=== PATIENT | male | born 1995 | race Caucasian/White ===

== ENCOUNTER 2024-04-17 12:03 | Emergency (ER) | payer BC, SELFPAY ==
--- NOTE | 2024-04-17 12:08 | ECG_ITS ---
Test Date: 2024-04-17 12:08:16 Measurements Intervals [place] Rate: 119 P: 75 DC: 158 QRS: 82 QRSD: 94 T: 46 QT: 326 QTc: 460 Interpretive Statements SINUS TACHYCARDIA POSSIBLE RIGHT ATRIAL ENLARGEMENT POSSIBLE LEFT ATRIAL ENLARGEMENT BASELINE ARTIFACT- I, AVR ABNORMAL ECG No previous ECG available for comparison Electronically Signed On 04-17-2024 14:31:42 CDT by Unruly Andersen D.O.
[2024-04-17 12:11] VITALS: BP 127/86; PULSE 113; RESP 18; TEMP 37.5; O2SAT 100
[2024-04-17 12:21] LABS: Basophils Percent Auto 0.4 % (0.2-1.2); Eosinophils Absolute Auto 0.1 K/mm3 (0-0.3); Eosinophils Percent Auto 0.8 % (0-4.4); Hematocrit 37.3 % (42.0-52.0); Hemoglobin 12.7 g/dL (14.0-18.0); Immature Granulocyte Percent A 1.1 % (0-0.5); Lymphocytes Percent Auto 26.2 % (18.3-44.2); Mean Corpuscular Volume 88.2 fl (80-100); Mean Platelet Volume 9.2 fl (7.4-10.4); Monocytes Absolute Auto 0.7 K/mm3 (0.1-0.6); Monocytes Percent Auto 7.5 % (2.6-8.5); Neutrophils Absolute Auto 5.9 K/mm3 (1.3-6.7); Platelet Count Result 360 k/mm3 (150-375); Red Blood Count 4.23 M/mm3 (4.6-6.20); White Blood Count 9.2 K/mm3 (4.5-10.0)
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
[2024-04-17 12:38] LABS: Add Urine Microscopic? NO; Appearance Urine Clear (Clear); Bilirubin Urine Negative (Negative); Blood Urine Negative (Negative); Color Urine Yellow (Yellow); Glucose Urine UA Negative (Negative); Ketones Urine Negative (Negative); Leukocyte Esterase Ur Negative LEU/UL (Negative); Nitrate Urine Negative (Negative); Protein Urine Negative (Negative); Specific Grav Ur 1.008 (1.001-1.035); Urobilinogen Urine 0.2 mg/dL (<2.0)
[2024-04-17 12:39] LABS: Ethanol 46 mg/dL (<10)
[2024-04-17 12:40] LABS: Alanine Aminotransferase 20 U/L (6-50); Albumin Level 3.9 g/dL (3.5-5.1); Alkaline Phosphatase 99 U/L (38-126); Anion Gap 10 mmol/L (4-12); Aspartate Amino Transferase 30 U/L (17-59); Bilirubin,Total 0.9 mg/dL (0.2-1.3); Blood Urea Nitrogen 4 mg/dL (9-20); Calcium 8.9 mg/dL (8.4-10.2); Carbon Dioxide 25 mmol/L (22-30); Chloride 106 mmol/L (98-107); Estimated Glomerular Filt Rate > 60; Glucose 99 mg/dL (65-110); Potassium 3.7 mmol/L (3.4-5.0); Sodium 141 mmol/L (137-145)
[2024-04-17 12:52] LABS: Amphetamine Screen Urine Negative (Negative); Barbiturate Screen Urine Negative (Negative); Benzodiazepines Screen Urine Negative (Negative); Cannabinoid Screen Urine Positive (Negative); Cocaine Screen Urine Negative (Negative); Methadone Screen Urine Negative (Negative); Opiate Screen Urine Negative (Negative); Phencyclidine Screen Urine Negative (Negative)
[2024-04-17 13:00] LABS: Influenza A QL RT-PCR Negative (Negative); Influenza B QL RT-PCR Negative (Negative); RSV RNA, RT-PCR Negative (Negative); SARS-CoV-2 RNA PCR Negative (Negative)
--- NOTE | 2024-04-17 13:36 | PC.NURSE ---
Pt refusing IV. MD Xavier notified. Pt to receive fluids via oral intake instead d/t IV refusal.
--- NOTE | 2024-04-17 13:38 | PC.NURSE ---
This RN and Lisa RN spoke with pt Mom in family room. Mom is guardian and able to provide paperwork. Mom brought copy of pt suicide note. Copy made for chart and given to MD Xavier. Mom also reports fear of pt returning home d/t increased paranoia. In the past week, pt has been carrying around knives. Mom reports knives have been removed from household.
--- NOTE | 2024-04-17 13:48 | PC.NURSE ---
Addendum entered by Emely Monzon RN 04/17/24 18:03: No case number given. Original Note: Poison control called by this RN. Poison control educated to add on acetaminophen and salicylate levels and to treat GI symptoms if they arise. MD Xavier notified.
[2024-04-17 14:09] LABS: Acetaminophen < 10 ug/mL (10-30); Salicylate < 1.0 mg/dL (2-20)
--- NOTE | 2024-04-17 14:43 | PC.NURSE ---
Diet tray ordered
[2024-04-17] MEDS: LORazepam (*CRX) 1 MG TABLET PO (14:46)
--- NOTE | 2024-04-17 14:55 | PC.NURSE ---
Crisis called by this RN and spoke with sales representative printing supplies - Veronica. A crisis sales representative printing supplies should arrive at [facility] between 1600 and 1630.
[2024-04-17 15:00] VITALS: BP 128/73; PULSE 106; RESP 16; O2SAT 98
--- NOTE | 2024-04-17 15:17 | PC.NURSE ---
RN informed guardian Crisis will be arriving to evaluate pt in 1-2 hours. Guardian leaving for lunch phone number received. Lillian [phone]
--- NOTE | 2024-04-17 16:20 | PC.NURSE ---
Crisis arrived to assess pt. Currently speaking with guardian
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
--- NOTE | 2024-04-17 17:10 | PC.NURSE ---
Pt agitated, repeatedly pacing hallway. Pt asked to return to room. Pt not compliant with instruction. Pt yelling profanities in room. Not re-directable. Pt called this RN a little bitch, and said I can smell your cunt from here. Security at bedside. OTILIO and MD Xavier aware of pt behavior.
[2024-04-17] MEDS: LORazepam INJ (*CRX) 2 MG/ML VIAL IM (17:12)
[2024-04-17] MEDS: HALOPERIDOL LACTATE 5 MG/ML VIAL IM (17:12)
--- NOTE | 2024-04-17 18:55 | PC.NURSE ---
DANETTE Gonzalez attempted additional set of VS. Pt uncooperative.
--- NOTE | 2024-04-17 20:45 | PC.NURSE ---
Report given to [facility]. All questions answered. EMS to transfer pt to [facility].
== END 2024-04-17 20:45 ==
PROVIDERS: Emergency Provider Emergency Medicine
DX: F20.9 Schizophrenia, unspecified (principal); T39.312A Poisoning by propionic acid derivatives, intentional self-harm, initial encounter; Z11.52 Encounter for screening for COVID-19; R94.31 Abnormal electrocardiogram [ECG] [EKG]; R00.0 Tachycardia, unspecified
CPT/HCPCS: 36415; 80053; 80307; 81003; 84443; 85025; 87637; 93005; 96372; 99285; A9270; J1630; J2060

== ENCOUNTER 2024-05-03 22:43 | Emergency (ER) | payer BC, SELFPAY ==
[2024-05-03 22:57] VITALS: BP 136/87; PULSE 100; RESP 20; TEMP 36.7; O2SAT 97
--- NOTE | 2024-05-04 00:05 | PC.NURSE ---
@2250, This RN asked ED Charge if pt could be placed in only empty room #13. ED Charge stated if pt was not being a danger to himself or others, he could sit in the waiting room. Pt stated he had no SI or HI and was placed in waiting room. around @2355 pt walked out of ED doors. Pt came in at 0005, frantically stating that she has been sitting in the car since the pt arrived with EMS and that he should have had someone watching him while he was sitting in the waiting room. This RN explained to pt mother that we are not allowed to make anyone stay if they are not a danger to themselves or others. Pt mother asked to speak with security. Alexander with security came over and called [facility] to inform them of the situation. Pt mother asked to speak with ED Charge whom explained to her that we had nowhere to place pt at the time nor do we have people available to sit with patients while they're in the waiting room.
[2024-05-04 00:28] VITALS: BP 144/84; PULSE 97; RESP 16; TEMP 36.6; O2SAT 99
--- NOTE | 2024-05-04 00:41 | ED.GENADULT ---
HPI - General Adult General Chief complaint: Psychiatric Symptoms Stated complaint: Psych, Schizophrenic episode. Time Seen by Provider: 05/04/24 00:23 History of Present Illness HPI narrative: patient is a 28-year-old gentleman who presents emergency department with chief complaint of schizophrenia. the patient reports that he is here because his mother called the police and fire department and reports that he wants to be checked out. Patient denies suicidal or homicidal ideation the patient denies auditory hallucinations Related Data Allergies Allergy/AdvReac Type Severity Reaction Status Date / Time No Known Allergies Allergy Verified 04/17/24 17:56 Review of Systems Review of Systems: A 10 system review of systems was completed on the patient and is negative except for what is stated in the HPI. Nursing and ancillary documentation was reviewed. [facility] Past Medical History Medical History Schizophrenia Social History Social History Substance use type: former substance user Exam Narrative: GENERAL: Well-appearing, well-nourished, and in no acute distress. HEAD: Normocephalic, atraumatic. EYES: PERRLA and EOMI. ENT: Nares clear, no rhinorrhea or epistaxis. Mucous membranes moist. NECK: Supple. CHEST: Clear to auscultation. No respiratory distress. HEART: Regular rate and rhythm. No murmur heard. Normal peripheral pulses. ABDOMEN: Soft, nontender, nondistended, normal active bowel sounds. EXTREMITIES: Normal range of motion. No edema. SKIN: Warm, dry, no rash. NEURO: No focal deficits. Alert and oriented x3. PSYCH: Normal mood and affect. Course Vital Signs Vital signs: Vital Signs Temperature 36.7 C 05/03/24 22:57 Pulse Rate 100 05/03/24 22:57 Respiratory Rate 20 05/03/24 22:57 Blood Pressure 136/87 05/03/24 22:57 Pulse Oximetry 97 05/03/24 22:57 Temperature 36.6 C 05/04/24 00:28 Pulse Rate 97 05/04/24 00:28 Respiratory Rate 16 05/04/24 00:28 Blood Pressure 144/84 H 05/04/24 00:28 Pulse Oximetry 99 05/04/24 00:28 Medical Decision Making MDM Narrative Medical decision making narrative: differential diagnosis includes schizophrenia, noncompliance, the patient was refusing evaluation Was alert and oriented x3 the patient walked out of the doors as the patient's mother showed up with the patient's legal guardianship papers and showed that the patient is not able to make decisions on his own security was unable to bring the patient back inside may reveal PD has been contacted and are attempting to find the patient Vital Signs Vital Signs: Vital Signs Temperature 36.7 C 05/03/24 22:57 Pulse Rate 100 05/03/24 22:57 Respiratory Rate 20 05/03/24 22:57 Blood Pressure 136/87 05/03/24 22:57 Pulse Oximetry 97 05/03/24 22:57 Temperature 36.6 C 05/04/24 00:28 Pulse Rate 97 05/04/24 00:28 Respiratory Rate 16 05/04/24 00:28 Blood Pressure 144/84 H 05/04/24 00:28 Pulse Oximetry 99 05/04/24 00:28 Discharge Plan Discharge Clinical Impression: Schizophrenia Patient Disposition: [facility] After Seen by Prov Condition: Stable Follow-up/Referrals: PHYSICIAN,DEPUTY CHIEF MAGISTRATE [Primary Care Provider] -
--- NOTE | 2024-05-04 00:43 | PC.NURSE ---
Patient is not consenting to treatment at the moment. ED registration was at bedside and advised to patient that a verbal yes or signature was needed to treat the patient. Patient states that he does not want to be treated.
--- NOTE | 2024-05-04 00:59 | PC.NURSE ---
Patient's mother who has guardianship has involuntary paperwork on the patient came back to room and patient became agitated and left. Patient's mother presented paperwork to nursing staff for first time. Patient eloped out of the ED with security following.
--- NOTE | 2024-05-04 02:33 | PC.NURSE ---
Patient is still eloped at this time.
--- NOTE | 2024-05-04 03:00 | PC.NURSE ---
Patient denies any SI/HI while in ED room 10. Patient was alert and oriented x4 at time of being evaluated in room 10 by EDP. At time of patient being in room 10 no paperwork was ever presented to nursing staff about guardianship over patient, until patient was eloped and mother was back in room with patient. While patient was in waiting room mother was calling staff and advised that she would not come in and sit with patient.
--- NOTE | 2024-05-04 03:19 | PC.NURSE ---
patient eloped from waiting area and was returned by police. Patient eloped again from room 10 through EMS doors. Patients mom produced guardianship papers as patient was walking out door. Patient denied SI and HI to triage nurse, treating nurse, and doctor but mom states that he is both. Mother was not with patient in waiting room but called er stenographer secretary several times stating that patient should be taken straight back and given something to calm down. This nurse explained to patients mother as she was standing at charge nurse desk yelling at staff, that there were no beds when patient arrived to er and that is why he was sent to triage. This nurse also explained to patients mother that there was no staff to sit with patient in waiting room to watch him. Patient was alert and orientated. Patient was calm with staff until mother arrived in his room. Police were unable to locate patient. Mom states she plans to call administration
== END 2024-05-04 02:52 | disposition left against medical advice (07) ==
PROVIDERS: Emergency Provider Emergency Medicine
DX: F20.9 Schizophrenia, unspecified (principal)
CPT/HCPCS: 99281